=== PATIENT | female | born 1950 | race Caucasian/White ===

== ENCOUNTER → 2016-11-25 16:56 | Outpatient (CLI) | payer MEDICARE, BC | END | disposition home or self-care (01) | LOC: D.MAMMO 13:00 | DX: Z12.31 Encounter for screening mammogram for malignant neoplasm of breast (principal) ==

== ENCOUNTER → 2017-01-06 17:18 | Outpatient (CLI) | payer MEDICARE, BC | END | disposition home or self-care (01) | LOC: D.MAMMO 12-24 09:30 | DX: R92.8 Other abnormal and inconclusive findings on diagnostic imaging of breast (principal) ==

== ENCOUNTER 2018-01-26 16:18 | Emergency (ER) | payer MEDICARE, BC ==
[~2018-01-26] VITALS: Ht 157.5 cm; Wt 96.4 kg
[2018-01-26 16:24] VITALS: BP 143/75; Ht 157.5 cm; Wt 96.4 kg
[2018-01-26] MEDS ORDERED: SPIRIVA18 MCG INH (16:27)
[2018-01-26] MEDS ORDERED: ADVAIR HFA 230-12 GM INH (16:27)
[2018-01-26] MEDS ORDERED: VENTOLIN HFA18 GM INH (16:28)
[2018-01-26] MEDS ORDERED: LASIX20 MG PO (16:28)
[2018-01-26] MEDS ORDERED: KLOR-CON M2020 MEQ PO (16:28)
[2018-01-26] MEDS ORDERED: SINGULAIR10 MG PO (16:28)
[2018-01-26] MEDS ORDERED: DYRENIUM50 MG PO (16:29)
[2018-01-26] MEDS ORDERED: FOLTANX (16:30)
[2018-01-26] MEDS ORDERED: GLUCOPHAGE1000 MG PO (16:30)
[2018-01-26] MEDS ORDERED: ZYLOPRIM300 MG PO (16:30)
[2018-01-26] MEDS ORDERED: PREVACID30 MG PO (16:31)
[2018-01-26] MEDS ORDERED: CENTRUM SILVER1 EACH PO (16:31)
[2018-01-26] MEDS ORDERED: CETIRIZINE HCL5 MG PO (16:32)
[2018-01-26] MEDS ORDERED: MUCINEX600 MG PO (16:32)
[2018-01-26] MEDS ORDERED: PREVACID SOLUTA30 MG PO (16:32)
[2018-01-26] MEDS ORDERED: BACTRIM 400-801 TAB PO (17:37)
[2018-01-26] MEDS ORDERED: ZOFRAN4 MG PO (18:23)
[2018-01-26] MEDS ORDERED: NORCO 5/325 TAB1 TAB PO (18:23)
== END 2018-01-26 19:07 | disposition home or self-care (01) ==
LOC: D.ER 16:18
DX: S81.812A Laceration without foreign body, left lower leg, initial encounter (principal); W26.8XXA Contact with other sharp object(s), not elsewhere classified, initial encounter; Y93.89 Activity, other specified; Y92.89 Other specified places as the place of occurrence of the external cause; J44.9 Chronic obstructive pulmonary disease, unspecified; K21.9 Gastro-esophageal reflux disease without esophagitis; E11.9 Type 2 diabetes mellitus without complications; Z79.4 Long term (current) use of insulin

== ENCOUNTER → 2018-02-16 20:30 | Outpatient (CLI) | payer MEDICARE, BC ==
[2018-01-26 16:24] VITALS: BMI 38.8
[~2018-02-16 20:30] MED LIST: ADVAIR HFA 230-12 GM INH; BACTRIM 400-801 TAB PO; CENTRUM SILVER1 EACH PO; CETIRIZINE HCL5 MG PO; DYRENIUM50 MG PO; FOLTANX; GLUCOPHAGE1000 MG PO; KLOR-CON M2020 MEQ PO; LASIX20 MG PO; MUCINEX600 MG PO; NORCO 5/325 TAB1 TAB PO; PREVACID SOLUTA30 MG PO; PREVACID30 MG PO; SINGULAIR10 MG PO; SPIRIVA18 MCG INH; VENTOLIN HFA18 GM INH; ZOFRAN4 MG PO; ZYLOPRIM300 MG PO
== END | disposition home or self-care (01) ==
LOC: D.MAMMO 14:00
DX: R92.8 Other abnormal and inconclusive findings on diagnostic imaging of breast (principal)

== ENCOUNTER → 2018-06-07 22:56 | Outpatient (CLI) | payer MEDICARE, BC ==
[2018-01-26 16:24] VITALS: BMI 38.8
== END | disposition home or self-care (01) ==
LOC: D.MAMMO 10:30
PROVIDERS: ATTEND Family Medicine
DX: R92.8 Other abnormal and inconclusive findings on diagnostic imaging of breast (principal)